=== PATIENT | female | born 1995 | race American Indian/Alaskan Native ===

== ENCOUNTER 2019-09-12 20:08 | Observation (INO) | payer MEDICAID ==
[2019-09-13 03:09] LABS: Hematocrit 29.7 % (30.3-42.9); Mean Corpuscular HGB Conc 34 % (30-34); Mean Corpuscular Volume 85 fl (79-97); Platelet Count 232 K/mm3 (140-440); Red Blood Count 3.49 M/mm3 (3.65-5.03); Red Cell Distribution Width 13.7 % (13.2-15.2)
[2019-09-13 03:27] LABS: Alanine Aminotransferase 46 units/L (7-56)
[2019-09-13 03:28] LABS: Uric Acid 3.7 mg/dL (3.5-7.6)
[2019-09-13 04:29] LABS: Bacteria,Urine 4+ /HPF (Negative); Bilirubin,Urine NEG (Negative); Blood,Urine NEG (Negative); Color,Urine Yellow (Yellow); Mucus,Urine 3+ /HPF
--- NOTE | 2019-09-13 04:47 | History and Physical Report ---
History of Present Illness Date of examination: 09/13/19 (Pt with complaints abdominal pain, LOF, REYES) Date of admission: 09/13/2019 Chief complaint: I have been having abdominal pain and LOF. I have had a headache for 2 days that is worse then my headaches I normally get. History of present illness: EDC Calculations LMP: 11/18/2019 EDC Confirmation: 11/18/2019 Gestational Age: 21 3/7 weeks Past History : 3 Term Births: 0 Premature Births: 0 Living Children: 0 Para: 0 Mult. Births: 0 Prev : 0 Prev. attempt? 0 Aborta: 1 Elect. Ab: 1 Spont. Ab: 1 Ectopics: 0 # 1 Delivery date: 2016 Delivery type: SAB # 2 Delivery date: 2016 Delivery type: EAB Comments: surgical intervention Risk Factors: Smoked Tobacco Use: Never smoker Smokeless Tobacco Use: Never Tobacco Use Comments: radha prior Passive smoke exposure: no Drug use: no HIV high-risk behavior: no Caffeine use: 0 drinks per day Alcohol use: yes Type: occ Exercise: no Seatbelt use: preg-social services counselor % Dietary Counseling: pn yes PAP Smear History: Date of Last PAP Smear: 07/29/2016 Results: Normal Past Medical History: Asthma - childhood Vertigo Blood Transfusion - as Past Medical History Blood Transfusions: yes Abnormal PAP: negative JORGE Exposure: negative Infertility: negative Uterine Anomaly: negative Uterine Surgery (not C/S): negative Other Gynecologic Problems: negative Infection History Hx of STD: gonorrhea HIV Risk Eval: no Hepatitis B Risk Eval: low risk Personal hx. of genital herpes: no Rash, Viral, or Febrile illness since last LMP? no Varicella/Chicken Pox Status: Immunized TB Risk: no Genetic History Congenital Heart Defect: Mom: no Dad: no Vahe Disease: Mom: no Dad: no Thalassemia Mom: no Dad: no Neural Tube Defect Mom: no Dad: no Down's Syndrome Mom: no Dad: no Laureano-Sachs Mom: no Dad: no Sickle Cell Disease/Trait Mom: no Dad: no Hemophilia Mom: no Dad: no Muscular Dystrophy Mom: no Dad: no Cystic Fibrosis Mom: no Dad: no Penn Chorea Mom: no Dad: no Mental Retardation Mom: no Dad: no Fragile X Mom: no Dad: no Other Genetic/Chromosomal Disorder Mom: no Dad: no Child w/other defect Mom: no Dad: no Enviromental Exposures Enviromental Exposures Reviewed Xray Exposure: no Medication, drug, or alcohol use since LMP: no Chemical/Other Exposure: no Exposure to Cat Liter: no Hx of Parvovirus (Fifth Disease): no Occupational Exposure to Children: none Comments: Unemployed Current Allergies (reviewed today): No known allergies Past History Past Medical History: asthma, other (Vertigo) Past Surgical History: no surgical history Family/Genetic History: none Social history: no significant social history - Obstetrical History Expected Date of Delivery: 11/18/19 Actual Gestation: 30 Week(s) 4 Day(s) : 3 Para: 0 Hx # Term Pregnancies: 0 Number of Pregnancies: 0 Spontaneous Abortions: 1 Induced : 1 Number of Living Children: 0 Medications and Allergies Allergies Allergy/AdvReac Type Severity Reaction Status Date / Time No Known Allergies Allergy Unverified 09/13/19 03:51 Review of Systems All systems: negative - Vital Signs Vital signs: Vital Signs Temp Resp 98.6 F 18 09/12/19 23:07 09/12/19 23:07 Temp Pulse Resp BP Pulse Ox 98.8 F 112 H 17 148/67 09/13/19 04:28 09/13/19 04:11 09/13/19 04:28 09/13/19 04:11 - Physical Exam Breasts: Positive: deferred Cardiovascular: Regular rate, Normal S1, Normal S2 Lungs: Positive: Clear to auscultation Abdomen: Positive: normal appearance, soft, normal bowel sounds. Negative: distention, tenderness Genitourinary (Female): Positive: normal external genitalia, normal perenium Vulva: both: normal Vagina: Positive: normal moisture. Negative: discharge Cervix: Negative: lesion, discharge Uterus: Positive: normal size, normal contour Adnexa: both: normal Anus/Rectum: Positive: normal perianal skin, heme negative. Negative: rectal mass, hemorrhoids Extremities: Positive: edema (Trace edema noted to lower extremities.) Deep Tendon Reflex Grade: Normal +2 - Obstetrical FHR: auscultation normal Uterine Contraction Monitor Mode: External Uterine Contraction Pattern: Absent Results Result Diagrams: 09/13/19 02:46 09/13/19 02:46 Abnormal lab results 09/13/19 09/13/19 Range/Units 02:46 02:46 RBC 3.49 L (3.65-5.03) M/mm3 Hgb 10.0 L (10.1-14.3) gm/dl Hct 29.7 L (30.3-42.9) % Creatinine 0.4 L (0.7-1.2) mg/dL AST 47 H (5-40) units/L All other labs normal. GBS UNKNOWN HBsAg Screen Negative Negative *1 RPR Non Reactive Non Reactive *2 Rubella Antibodies, IgG 3.86 index Immune >0.99 *3 Non-immune <0.90 Equivocal 0.90 - 0.99 Immune >0.99 ABO Grouping A *4 Rh Factor Positive *5 Please note: Prior records for this patient's ABO / Rh type are not available for additional verification. Antibody Screen Negative Negative *6 WBC 8.7 x10E3/uL 3.4-10.8 *7 RBC [L] 3.47 x10E6/uL 3.77-5.28 *8 Hemoglobin [L] 10.0 g/dL 11.1-15.9 *9 Hematocrit [L] 30.6 % 34.0-46.6 *10 MCV 88 fL 79-97 *11 MCH 28.8 pg 26.6-33.0 *12 MCHC 32.7 g/dL 31.5-35.7 *13 RDW 13.8 % 11.7-15.4 *14 Platelets 203 x10E3/uL 150-450 *15 Neutrophils 70 % Not Estab. *16 Lymphs 22 % Not Estab. *17 Monocytes 6 % Not Estab. *18 Eos 1 % Not Estab. *19 Basos 0 % Not Estab. *20 ! Immature Cells <No Reported Value> *21 Neutrophils (Absolute) 6.0 x10E3/uL 1.4-7.0 *22 Lymphs (Absolute) 1.9 x10E3/uL 0.7-3.1 *23 Monocytes(Absolute) 0.5 x10E3/uL 0.1-0.9 *24 Eos (Absolute) 0.1 x10E3/uL 0.0-0.4 *25 Baso (Absolute) 0.0 x10E3/uL 0.0-0.2 *26 ! Immature Granulocytes 1 % Not Estab. *27 ! Immature Grans (Abs) 0.1 x10E3/uL 0.0-0.1 *28 ! NRBC <No Reported Value> *29 Hematology Comments: <No Reported Value> *30 Tests: (2) Gestational Glucose Tolerance (251852) Glucose - Fasting 93 mg/dL 65-94 *31 Glucose - 1 hour 171 mg/dL 65-179 *32 Glucose - 2 hour 140 mg/dL 65-154 *33 Glucose - 3 hour 128 mg/dL 65-139 *34 ! Note: SPRCS *35 For diagnosis of gestational diabetes, at least two values must meet or exceed normal limits, which is based on 100 gm of oral glucose challenge. Tests: (3) HIV Ag/Ab with Reflex (684763) HIV Screen 4th Generation wRfx Non Reactive Non Reactive *36 Tests: (4) HCV Ab w/Rflx to Verification (237566) ! HCV Ab <0.1 s/co ratio 0.0-0.9 *37 Tests: (5) Comment: (376105) ! Comment: SPRCS *38 Non reactive HCV antibody screen is consistent with no HCV infection, unless recent infection is suspected or other evidence exists to indicate HCV infection. Assessment and Plan Pt is a 24 y.o. @ 30.4 wks who originally came to OB triage with c/o LOF, lower abdominal and back pain. Also states that the abdominal pain started in the lower abdomen, but is now "all over". SROM and labor was r/o. Category 1 monitor strip, no contractions noted. Upon further examination the pt was noted to have some elevated BP's. The highest being 157/120. Called by RN with BP readings. Labs were ordered and pt was found to have a slightly elevated AST. Spoke with the patient regarding findings and further questioning revealed that the patient has had a REYES for 2 days. States that this REYES is worse then her normal REYES that she has had during this . She has not taken anything for relief for of this REYES. Spoke with with Dr. Montemayor who recommended admitting the patient for OBS, administering doses of steroids, and getting a 24 hour urine Explained plan to pt: admit for steroid administration, complete 24 hour urine, and monitor BP's. Explained reason for admission to observation was to watch patient and status for 24 hours d/t elevated blood pressures in and that she would need further testing and evaluation if she was diagnosed with pre eclampsia. Also explained what pre eclampsia was to patient. Patient verbalized understanding. All questions and concerns were addressed at this time. - Patient Problems (1) 30 weeks gestation of Onset Date: ~09/09/19 Current Visit: Yes Status: Acute Plan to address problem: Continue to monitor status. BMZ given for lung maturity. (2) Elevated blood pressure reading without diagnosis of hypertension Onset Date: ~09/13/19 Current Visit: Yes Status: Acute Plan to address problem: Monitor BP's, obtain pre eclampsia labs, collect 24 hour urine.
[2019-09-13] MEDS: LACTATED RINGERS 1,000 ML IV SCH ×2 (05:35→22:10)
[2019-09-13] MEDS: ALUM-MAG HYDROXIDE-SIMETHICONE 200-200-20MG/5ML ORAL LIQD 30 ML PO PRN (05:35)
[2019-09-13] MEDS: BETAMET ACET/BETAMET NA PH 6 MG/ML INJ 5 ML MDV IM SCH (05:39)
[2019-09-13] MEDS: FAMOTIDINE 20 MG/2 ML INJ IV SCH (10:01)
[2019-09-13] MEDS: ACETAMINOPHEN 500 MG TAB PO PRN (20:22)
[2019-09-13] MEDS: diphenhydrAMINE 25 MG CAP PO PRN (20:22)
[2019-09-13] MEDS ORDERED: ZOLPIDEM 5 MG TAB PO PRN (23:55)
[2019-09-14] MEDS: ACETAMINOPHEN 500 MG TAB PO PRN (02:15)
[2019-09-14] MEDS ORDERED: MAGNESIUM SULFATE 4 GM/100 ML BAG IV ONE (02:45)
[2019-09-14] MEDS ORDERED: hydrALAZINE 20 MG/1 ML INJ IV ONE (02:45)
--- NOTE | 2019-09-14 02:48 | Event Note ---
Date: 09/14/19 Pt c/o having headache not relieved with tylenol times two does and now with elevation in blood pressures. Will start magnesium at this time and given 5 of hydralazine IV. Orders entered and given to RN taking care of pt.
[2019-09-14] MEDS ORDERED: fentaNYL 100 MCG/2 ML INJ IV ONE ×2 (02:50→06:00)
[2019-09-14] MEDS ORDERED: MAGNESIUM SULFATE 40GM/1000ML 40 GM/1,000 ML BAG IV SCH (03:00)
--- NOTE | 2019-09-14 05:37 | History and Physical Report ---
History of Present Illness Date of examination: 09/14/19 Date of admission: 09/13/19 05:32 Past History Past Medical History: asthma, other (Vertigo) Past Surgical History: no surgical history Family/Genetic History: none - Obstetrical History : 3 Medications and Allergies Allergies Allergy/AdvReac Type Severity Reaction Status Date / Time No Known Allergies Allergy Unverified 09/13/19 03:51 Home Medications Medication Instructions Recorded Confirmed Last Taken Type Vit-Fe Fumar-FA [ 1 tab PO QDAY 09/13/19 09/13/19 Unknown History Vitamin] Active Meds: Active Medications Acetaminophen (Tylenol) 1,000 mg PO Q6H PRN PRN Reason: Pain, Mild (1-3) Last Admin: 09/14/19 02:15 Dose: 1,000 mg Documented by: Al Hydrox/Mg Hydrox/Simethicone (Alum-Mag Hydrox-Simeth [phone]/5ml) 30 ml PO Q4H PRN PRN Reason: Indigestion Last Admin: 09/13/19 05:35 Dose: 30 ml Documented by: Diphenhydramine HCl (Benadryl) 25 mg PO QHS PRN PRN Reason: Sleep Last Admin: 09/13/19 20:22 Dose: 25 mg Documented by: Famotidine (Pepcid) 20 mg IV QDAY JODI Last Admin: 09/13/19 10:01 Dose: 20 mg Documented by: Fentanyl (Sublimaze) 100 mcg IV ONCE ONE Stop: 09/14/19 06:01 Lactated Ringer's (Lactated Ringers) 1,000 mls @ 75 mls/hr IV DIRECT JODI Last Admin: 09/13/19 22:10 Dose: 75 mls/hr Documented by: Multivitamins/Iron/Calcium ( Vitamin) 1 each PO QDAY JODI - Vital Signs Vital signs: Vital Signs Temp Resp 98.6 F 18 09/12/19 23:07 09/12/19 23:07 Temp Pulse Resp BP Pulse Ox 98.3 F 102 H 17 111/55 09/14/19 05:19 09/14/19 05:33 09/13/19 19:20 09/14/19 05:33 Results Result Diagrams: 09/13/19 02:46 09/13/19 02:46 All other labs normal.
[2019-09-14] MEDS: BETAMET ACET/BETAMET NA PH 6 MG/ML INJ 5 ML MDV IM SCH (05:39)
--- NOTE | 2019-09-14 05:53 | Progress Note ---
Assessment and Plan pt resting Continues to c/o headache 03/02. Given fentanyl as ordered. Pt has had the maximum dose of Tylenol. Consulted with Dr Nieto. CT scan of the head ordered for today. Pt is aware. BP 124-98/78-50. Thyroid panel ordered due to maternal tachycardia. 24hr urine completed and sent to lab PreE labs drawn Subjective - Subjective Date of service: 09/14/19 (pt c/o REYES 03/02; fentanyl given as ordered) Principal diagnosis: IUP@30w5d;REYES; PreE; 24hr urine completed Patient reports: movement normal Objective - Vital Signs Vital Signs: Vital Signs - 12hr 09/13/19 09/13/19 09/13/19 18:03 19:02 19:20 Temperature 98.9 F Pulse Rate 100 H 106 H Respiratory 17 Rate Blood Pressure 132/81 129/72 09/13/19 09/13/19 09/13/19 19:32 20:03 20:32 Temperature Pulse Rate 97 H 103 H 108 H Respiratory Rate Blood Pressure 123/70 123/60 118/68 09/13/19 09/13/19 09/13/19 21:03 21:33 22:03 Temperature Pulse Rate 99 H 100 H 110 H Respiratory Rate Blood Pressure 115/67 116/59 104/52 09/13/19 09/13/19 09/13/19 22:33 23:04 23:41 Temperature 98.7 F Pulse Rate 100 H 106 H Respiratory Rate Blood Pressure 107/55 105/58 09/13/19 09/14/19 09/14/19 23:46 00:02 00:33 Temperature Pulse Rate 104 H 103 H 112 H Respiratory Rate Blood Pressure 123/58 124/62 119/54 09/14/19 09/14/19 09/14/19 01:03 01:16 02:03 Temperature Pulse Rate 112 H 102 H 107 H Respiratory Rate Blood Pressure 114/53 148/71 187/80 09/14/19 09/14/19 09/14/19 02:33 03:02 03:06 Temperature Pulse Rate 110 H 102 H 104 H Respiratory Rate Blood Pressure 167/75 128/59 105/57 09/14/19 09/14/19 09/14/19 03:33 04:03 04:33 Temperature Pulse Rate 107 H 100 H 95 H Respiratory Rate Blood Pressure 105/51 98/50 114/54 09/14/19 09/14/19 09/14/19 05:03 05:19 05:33 Temperature 98.3 F Pulse Rate 104 H 102 H Respiratory Rate Blood Pressure 124/78 111/55 - Exam Breasts: deferred Cardiovascular: Regular rate Lungs: Normal air movement Abdomen: Present: normal appearance, soft. Absent: distention, tenderness Uterus: Present: normal FHR: auscultation normal, category 1 Uterine Contraction Monitor Mode: External Uterine Contraction Pattern: Absent Uterine Tone Measurement Phase: Resting Extremities: normal Deep Tendon Reflex Grade: Normal +2 - Labs Labs: Abnormal Labs 09/13/19 09/13/19 09/13/19 02:46 02:46 04:00 RBC 3.49 L Hgb 10.0 L Hct 29.7 L Creatinine 0.4 L AST 47 H Urine WBC (Auto) 10.0 H
[2019-09-14 07:10] LABS: Free T4 (Free Thyroxine) 0.95 ng/dL (0.76-1.46)
[2019-09-14 07:17] LABS: Creatinine 24 Hour,Urine 1.7 (0.8-2.8); Creatinine,Urine 128.5 mg/dL (0.1-20.0)
[2019-09-14] MEDS ORDERED: DEXMEDETOMIDINE 200 MCG/2 ML VIAL IV ONE (07:31)
--- NOTE | 2019-09-14 08:50 | Cat Scan Report ---
CT head without contrast INDICATION : Pt complains of a persistent headache.. TECHNIQUE: Axial imaging performed from the skull apex through the skull base without the use of con trast. All CT scans at this location are performed using CT dose reduction for ALARA by means of aut omated exposure control. COMPARISON: None FINDINGS: Parenchyma: No acute intracranial hemorrhage or parenchymal abnormality. Ventricles: Ventricles are normal in size and appear symmetric. Soft tissues: Soft tissues including the orbits appear normal. Bones: No acute osseous abnormality. Sinuses: Sinuses and mastoid air cells are clear. IMPRESSION: No acute abnormality. Signer Name: José Miguel Guerra MD Signed: 09/14/2019 8:45 AM Workstation Name: [id number]
[2019-09-14] MEDS: PRENATAL VIT27-FE FUMARATE-FOLIC ACID VIT TAB PO SCH (09:32)
[2019-09-14] MEDS: FAMOTIDINE 20 MG/2 ML INJ IV SCH (09:32)
--- NOTE | 2019-09-14 10:02 | Event Note ---
Date: 09/14/19 (pt called asking to see provider several times) Pt states she is very anxious @ her baby and her health. Reassured that all of her testing for PreE had come back and that was not at this time the cause of her REYES. At the time of the visit the CT results were not back, they have returned as of this documentation and it is WNL. Consulted with Dr Montemayor. Order given for Claritin and fioricet. pt aware if CT was negative we will plan d/c. Called MERLIN Cervantes made her aware of order for medication.
[2019-09-14] MEDS: BUTALB/ACETAMINOPHEN/CAFFEINE TAB PO PRN ×2 (10:39→21:45)
[2019-09-14] MEDS: LORATADINE/PSEUDOEPHEDRINE 10-240 MG TAB 24HR PO SCH (11:37)
--- NOTE | 2019-09-14 12:37 | Discharge Summary ---
Providers - Providers Date of Admission: 09/13/19 05:32 Date of discharge: 09/14/19 (Pt states REYES has improved but it is still there; agrees to d/c) Attending physician: NATASHA VORA Primary care physician: NATASHA VORA Hospitalization Reason for admission: Pt c/o LOF, REYES Condition: Good Procedures: CT scan wnl PreE labs wnl US Hospital course: Evaluation for LOF; c/o REYES Disposition: DC-01 TO HOME OR SELFCARE - Discharge Diagnoses (1) Headache Status: Acute Qualifiers: Headache type: tension-type Headache chronicity pattern: episodic headache Comment: Encouraged pt to use Tylenol cold/sinus as directed on package and take with sips of caffine. Core Measure Documentation - Palliative Care Palliative Care/ Comfort Measures: Not Applicable - Core Measures Any of the following diagnoses?: none - VTE Discharge Requirements Deep Vein Thrombosis/Pulmonary Embolism Present on Admission: No Has pt received <5 days of overlap therapy or INR<2.0: No Anticoagulant overlap therapy prescribed at discharge: No Contraindication No Overlap Therapy order at DC: Not Indicated - Acute SC Discharge Requirements Aspirin at discharge: No Reason for no aspirin on DC: Medical contraindication DEMETRICE/ARB for LVSD if EF <40%: Not Applicable Reason for no DEMETRICE/ARB: Medical contraindication Reason for no beta malena on DC: Medical contraindication Statin for LDL = or >100 mg/dl on DC: Not Applicable Reason for no statin on DC: Medical contraindication - Heart Failure Discharge Requirements DEMETRICE/ARB for LVSD if EF <40%: Not Applicable Reason for no DEMETRICE/ARB: Medical contraindication Beta malena at discharge: No Reason for no beta malena on DC: Medical contraindication - Stroke Discharge Requirements Statin for LDL = or >70 mg/dl on DC: Not Applicable Reason for no statin on DC: Not Indicated Anticoag for atrial fib/atrial flutter: Not Applicable Reason for no anticoag for AF/F on DC: Not Indicated Antithrombotic for ischemic stroke: No Reason for no antithrombotic on DC: Not Indicated Exam - Constitutional Vitals: Temp Pulse Resp BP Pulse Ox 98.2 F 97 H 18 115/54 09/14/19 12:03 09/14/19 12:03 09/14/19 12:03 09/14/19 12:03 General appearance: Present: no acute distress, well-nourished - EENT Eyes: Present: PERRL ENT: hearing intact, clear oral mucosa - Neck Neck: Present: supple, normal ROM - Respiratory Respiratory effort: normal Respiratory: bilateral: CTA - Cardiovascular Heart Sounds: Present: S1 & S2. Absent: rub, click - Extremities Extremities: pulses symmetrical, No edema Peripheral Pulses: within normal limits - Abdominal General gastrointestinal: Present: deferred Female genitourinary: Present: deferred - Rectal Rectal Exam: deferred - Integumentary Integumentary: Present: clear, warm, dry - Musculoskeletal Musculoskeletal: gait normal, strength equal bilaterally - Psychiatric Psychiatric: appropriate mood/affect, intact judgment & insight - Neurologic Neurologic: CNII-XII intact, moves all extremities Plan Activity: advance as tolerated Weight Bearing Status: Weight Bear as Tolerated Diet: low salt Care Plan Goals: resolution of REYES Follow up with: NATASHA VORA MD [Primary Care Provider] - 09/18/19 10:15 am (Please keep your appointment as scheduled in [place] on Wednesday09-18-19 @ 10:15AM Call with worsening headache, blurred vision, chest pain. Hydration, kick counts. Limit the amout of salt you use on your foods.)
--- NOTE | 2019-09-14 15:30 | Event Note ---
Date: 09/14/19 Called Shailesh Phoenix for patient update. States patient is still in US however BPP was 4/8 with EDER 7. States FHT's were reactive prior to discontinuing monitoring. Orders placed in [facility], RN informed Discharge cancelled, IVF started, need O2 sats and continuous monitoring.
[2019-09-14] MEDS: D5W/LACTATED RINGERS 1,000 ML IV SCH (15:56)
--- NOTE | 2019-09-14 16:04 | Progress Note ---
Assessment and Plan BPP 4/8 EDER 7. These findings are inconsistent with observed CNM evaluation at the bedside NST reactive, palpated movement, pt reports good movement. Consulted with Dr Montemayor Will order repeat testing in AM BPP and EDER. Pt agrees with POC. Will cont. IVFs overnight. - Patient Problems (1) Headache Current Visit: Yes Status: Acute Qualifiers: Headache type: tension-type Headache chronicity pattern: episodic headache Plan to address problem: REYES is minimal at this time. Pt very anxious @ todays findings. Explained all findings to pt and her mom and that we will repeat BPP and EDER in the AM. Subjective - Subjective Date of service: 09/14/19 (spoke with pt and her mom(via phone) at pt's request) Principal diagnosis: IUP@30w5d;REYES; PreE; 24hr urine completed Patient reports: movement normal Objective - Vital Signs Vital Signs: Vital Signs - 12hr 09/14/19 09/14/19 09/14/19 04:03 04:33 05:03 Temperature Pulse Rate 100 H 95 H 104 H Respiratory Rate Blood Pressure 98/50 114/54 124/78 O2 Sat by Pulse Oximetry 09/14/19 09/14/19 09/14/19 05:19 05:33 06:03 Temperature 98.3 F Pulse Rate 102 H 88 Respiratory Rate Blood Pressure 111/55 122/58 O2 Sat by Pulse Oximetry 09/14/19 09/14/19 09/14/19 06:33 07:03 07:33 Temperature 98.5 F Pulse Rate 87 84 98 H Respiratory 18 Rate Blood Pressure 133/60 132/58 105/54 O2 Sat by Pulse Oximetry 09/14/19 09/14/19 09/14/19 08:03 09:33 10:03 Temperature 98.3 F Pulse Rate 94 H 93 H 106 H Respiratory 18 Rate Blood Pressure 110/59 116/57 104/49 O2 Sat by Pulse Oximetry 09/14/19 09/14/19 09/14/19 10:33 11:03 11:33 Temperature Pulse Rate 114 H 111 H 110 H Respiratory Rate Blood Pressure 102/45 109/52 115/53 O2 Sat by Pulse Oximetry 09/14/19 09/14/19 09/14/19 11:40 12:03 12:33 Temperature 98.2 F 98.2 F Pulse Rate 97 H 103 H Respiratory 18 18 Rate Blood Pressure 115/54 101/50 O2 Sat by Pulse Oximetry 09/14/19 09/14/19 09/14/19 13:03 15:28 15:29 Temperature Pulse Rate 101 H 101 H 104 H Respiratory Rate Blood Pressure 88/49 123/55 O2 Sat by Pulse 99 Oximetry 09/14/19 09/14/19 09/14/19 15:34 15:39 15:44 Temperature Pulse Rate 107 H 101 H 107 H Respiratory Rate Blood Pressure O2 Sat by Pulse 100 100 99 Oximetry 09/14/19 09/14/19 15:49 15:54 Temperature Pulse Rate 105 H 101 H Respiratory Rate Blood Pressure O2 Sat by Pulse 99 99 Oximetry - Exam Breasts: deferred Cardiovascular: Regular rate Lungs: Clear to auscultation Abdomen: Present: normal appearance, soft. Absent: distention, tenderness Uterus: Present: normal FHR: auscultation normal, category 1 FHR comments: variability is minimal; prior to US NST very reactive Overall even now Cat 1 Uterine Contraction Monitor Mode: External Uterine Contraction Pattern: Absent Uterine Tone Measurement Phase: Resting Extremities: normal Deep Tendon Reflex Grade: Normal +2 - Labs Labs: Abnormal Labs 09/13/19 09/13/19 09/13/19 02:46 02:46 04:00 RBC 3.49 L Hgb 10.0 L Hct 29.7 L Creatinine 0.4 L AST 47 H Urine WBC (Auto) 10.0 H Urine Creatinine Ur Total Protein 24 Hr Urine Total Protein 09/14/19 09/14/19 04:00 06:28 RBC Hgb Hct Creatinine AST 46 H Urine WBC (Auto) Urine Creatinine 128.5 H Ur Total Protein 24 Hr 229.50 H Urine Total Protein 17 H Laboratory Results - last 24 hr 09/14/19 09/14/19 09/14/19 04:00 06:28 06:28 AST 46 H TSH 1.100 Free T4 0.95 Urine Total Volume 1350 Urine Creatinine 128.5 H Ur Creatinine 24 Hour 1.7 Ur Total Protein 24 Hr 229.50 H Urine Total Protein 17 H
[2019-09-14] MEDS ORDERED: ZOLPIDEM 5 MG TAB PO ONE (20:00)
[2019-09-15] MEDS: BUTALB/ACETAMINOPHEN/CAFFEINE TAB PO PRN (03:04)
[2019-09-15] MEDS: diphenhydrAMINE 25 MG CAP PO PRN (03:04)
[2019-09-15] MEDS: D5W/LACTATED RINGERS 1,000 ML IV SCH ×2 (03:05→07:22)
--- NOTE | 2019-09-15 07:34 | Ultrasound Report ---
ULTRASOUND OBSTETRIC LIMITED ULTRASOUND BIOPHYSICAL PROFILE INDICATION / CLINICAL INFORMATION: Leakage of fluid. COMPARISON: None available. FINDINGS: BREATHING MOVEMENT = 0 GROSS BODY MOVEMENT = 2 TONE = 0 QUALITATIVE AMNIOTIC FLUID VOLUME = 2 TOTAL BIOPHYSICAL SCORE = 4/8 AMNIOTIC FLUID INDEX (cm) = 7.8 PRESENTATION: Cephalic. HEART RATE (beats per minute): 159 ADDITIONAL FINDINGS: None. IMPRESSION: 1. Biophysical Score = 4/8 Signer Name: Rico Pringle MD Signed: 09/14/2019 4:16 PM Workstation Name: [id number]
--- NOTE | 2019-09-15 07:37 | Progress Note ---
Assessment and Plan Patient resting on right side with c/o REYES. denies leaking, bleeding, or ctx and reports active FM. repeat BPP scheduled for this morning. If BPP will plan on d/c home with f/u in office next week. - Patient Problems (1) 30 weeks gestation of Onset Date: ~09/09/19 Current Visit: Yes Status: Acute (2) Elevated blood pressure reading without diagnosis of hypertension Onset Date: ~09/13/19 Current Visit: Yes Status: Acute Plan to address problem: 24h urine TP 229 AST/ALT 46/46 Blood pressures are normal Will continue to closely monitor (3) Headache Current Visit: Yes Status: Acute Qualifiers: Headache type: tension-type Headache chronicity pattern: episodic headache Plan to address problem: Tylenol PO PRN Subjective - Subjective Date of service: 09/15/19 Principal diagnosis: IUP@[id number];REYES; 24hr urine completed Patient reports: movement normal, no new complaints, no loss of fluid, no vaginal bleeding, no contractions Objective - Vital Signs Vital Signs: Vital Signs - 12hr 09/14/19 09/14/19 09/14/19 19:35 19:41 19:46 Temperature Pulse Rate 112 H 60 115 H Respiratory Rate Blood Pressure O2 Sat by Pulse 100 98 99 Oximetry 09/14/19 09/14/19 09/14/19 19:51 19:56 20:01 Temperature Pulse Rate 114 H 115 H 108 H Respiratory Rate Blood Pressure O2 Sat by Pulse 99 99 99 Oximetry 09/14/19 09/14/19 09/14/19 20:06 20:11 20:15 Temperature 97.9 F Pulse Rate 102 H 104 H Respiratory 18 Rate Blood Pressure O2 Sat by Pulse 100 100 Oximetry 09/14/19 09/14/19 09/14/19 20:16 20:21 20:26 Temperature Pulse Rate 108 H 105 H 98 H Respiratory Rate Blood Pressure O2 Sat by Pulse 100 100 100 Oximetry 09/14/19 09/14/19 09/14/19 20:28 20:31 20:36 Temperature Pulse Rate 104 H 100 H 104 H Respiratory Rate Blood Pressure 125/75 O2 Sat by Pulse 100 100 Oximetry 09/14/19 09/14/19 09/14/19 20:41 20:46 20:51 Temperature Pulse Rate 118 H 108 H 106 H Respiratory Rate Blood Pressure O2 Sat by Pulse 100 100 100 Oximetry 09/14/19 09/14/19 09/14/19 20:56 20:57 21:01 Temperature Pulse Rate 107 H 108 H 106 H Respiratory Rate Blood Pressure 115/68 O2 Sat by Pulse 100 100 Oximetry 09/14/19 09/14/19 09/14/19 21:06 21:11 21:16 Temperature Pulse Rate 104 H 110 H 111 H Respiratory Rate Blood Pressure O2 Sat by Pulse 100 100 100 Oximetry 09/14/19 09/14/19 09/14/19 21:21 21:26 21:27 Temperature Pulse Rate 109 H 104 H 109 H Respiratory Rate Blood Pressure 122/66 O2 Sat by Pulse 100 100 Oximetry 09/14/19 09/14/19 09/14/19 21:31 21:36 21:41 Temperature Pulse Rate 109 H 114 H 113 H Respiratory Rate Blood Pressure O2 Sat by Pulse 100 100 100 Oximetry 09/14/19 09/14/19 09/14/19 21:46 21:51 21:56 Temperature Pulse Rate 105 H 105 H 124 H Respiratory Rate Blood Pressure O2 Sat by Pulse 100 100 100 Oximetry 09/14/19 09/14/19 09/14/19 21:58 22:01 22:06 Temperature Pulse Rate 105 H 110 H 113 H Respiratory Rate Blood Pressure 127/59 O2 Sat by Pulse 100 100 Oximetry 09/14/19 09/14/19 09/14/19 22:11 22:16 22:21 Temperature Pulse Rate 117 H 122 H 110 H Respiratory Rate Blood Pressure O2 Sat by Pulse 100 100 100 Oximetry 09/14/19 09/14/19 09/14/19 22:26 22:27 22:31 Temperature Pulse Rate 120 H 111 H 114 H Respiratory Rate Blood Pressure 118/62 O2 Sat by Pulse 100 100 Oximetry 09/14/19 09/14/19 09/14/19 22:36 22:41 22:46 Temperature Pulse Rate 119 H 108 H 116 H Respiratory Rate Blood Pressure O2 Sat by Pulse 100 100 100 Oximetry 09/14/19 09/14/19 09/14/19 22:51 22:56 22:57 Temperature Pulse Rate 110 H 107 H 110 H Respiratory Rate Blood Pressure 119/65 O2 Sat by Pulse 100 100 Oximetry 09/14/19 09/14/19 09/14/19 23:01 23:06 23:11 Temperature Pulse Rate 104 H 106 H 107 H Respiratory Rate Blood Pressure O2 Sat by Pulse 100 100 99 Oximetry 09/14/19 09/14/19 09/14/19 23:16 23:21 23:26 Temperature Pulse Rate 95 H 98 H 99 H Respiratory Rate Blood Pressure O2 Sat by Pulse 99 99 99 Oximetry 09/14/19 09/14/19 09/14/19 23:27 23:31 23:36 Temperature Pulse Rate 94 H 103 H 101 H Respiratory Rate Blood Pressure 123/62 O2 Sat by Pulse 99 100 Oximetry 09/14/19 09/14/19 09/14/19 23:41 23:46 23:51 Temperature Pulse Rate 103 H 101 H 100 H Respiratory Rate Blood Pressure O2 Sat by Pulse 99 100 99 Oximetry 09/14/19 09/14/19 09/15/19 23:56 23:59 00:01 Temperature Pulse Rate 105 H 103 H 104 H Respiratory Rate Blood Pressure 122/59 O2 Sat by Pulse 99 100 Oximetry 09/15/19 09/15/19 09/15/19 00:06 00:11 00:16 Temperature Pulse Rate 98 H 99 H 103 H Respiratory Rate Blood Pressure O2 Sat by Pulse 100 100 99 Oximetry 09/15/19 09/15/19 09/15/19 00:21 00:26 00:27 Temperature Pulse Rate 109 H 113 H 112 H Respiratory Rate Blood Pressure 130/60 O2 Sat by Pulse 100 100 Oximetry 09/15/19 09/15/19 09/15/19 00:31 00:36 00:41 Temperature Pulse Rate 117 H 121 H 114 H Respiratory Rate Blood Pressure O2 Sat by Pulse 100 100 100 Oximetry 09/15/19 09/15/19 09/15/19 00:46 00:51 00:56 Temperature Pulse Rate 112 H 98 H 104 H Respiratory Rate Blood Pressure O2 Sat by Pulse 99 100 100 Oximetry 09/15/19 09/15/19 09/15/19 00:57 01:01 01:06 Temperature Pulse Rate 98 H 102 H 102 H Respiratory Rate Blood Pressure 122/57 O2 Sat by Pulse 100 100 Oximetry 09/15/19 09/15/19 09/15/19 01:11 01:16 01:21 Temperature Pulse Rate 102 H 95 H 94 H Respiratory Rate Blood Pressure O2 Sat by Pulse 100 99 99 Oximetry 09/15/19 09/15/1920 01:26 01:27 01:31 Temperature Pulse Rate 98 H 94 H 97 H Respiratory Rate Blood Pressure 126/62 O2 Sat by Pulse 100 100 Oximetry 09/15/19 09/15/19 09/15/19 01:36 01:41 01:46 Temperature Pulse Rate 97 H 97 H 92 H Respiratory Rate Blood Pressure O2 Sat by Pulse 100 100 100 Oximetry 09/15/19 09/15/19 09/15/19 01:51 01:56 01:57 Temperature Pulse Rate 96 H 101 H 99 H Respiratory Rate Blood Pressure 121/59 O2 Sat by Pulse 100 100 Oximetry 09/15/19 09/15/19 09/15/19 02:01 02:06 02:11 Temperature Pulse Rate 103 H 104 H 103 H Respiratory Rate Blood Pressure O2 Sat by Pulse 100 99 100 Oximetry 09/15/19 09/15/19 09/15/19 02:16 02:21 02:26 Temperature Pulse Rate 112 H 99 H 95 H Respiratory Rate Blood Pressure O2 Sat by Pulse 99 100 99 Oximetry 09/15/19 09/15/19 09/15/19 02:27 02:31 02:36 Temperature Pulse Rate 93 H 94 H 103 H Respiratory Rate Blood Pressure 118/57 O2 Sat by Pulse 100 99 Oximetry 09/15/19 09/15/19 09/15/19 02:41 02:46 02:51 Temperature Pulse Rate 92 H 100 H 102 H Respiratory Rate Blood Pressure O2 Sat by Pulse 99 100 100 Oximetry 09/15/19 09/15/19 09/15/19 02:56 02:58 03:00 Temperature 97.9 F Pulse Rate 115 H 95 H 97 H Respiratory Rate Blood Pressure 157/106 121/58 O2 Sat by Pulse 100 94 Oximetry 09/15/19 09/15/19 09/15/19 03:01 03:06 03:11 Temperature Pulse Rate 98 H 97 H 123 H Respiratory Rate Blood Pressure O2 Sat by Pulse 100 100 100 Oximetry 09/15/19 09/15/19 09/15/19 03:16 03:21 03:26 Temperature Pulse Rate 90 98 H 93 H Respiratory Rate Blood Pressure O2 Sat by Pulse 100 100 100 Oximetry 09/15/19 09/15/19 09/15/19 03:27 03:31 03:36 Temperature Pulse Rate 95 H 93 H 99 H Respiratory Rate Blood Pressure 115/61 O2 Sat by Pulse 100 100 Oximetry 09/15/19 09/15/19 09/15/19 03:41 03:46 03:51 Temperature Pulse Rate 91 H 97 H 103 H Respiratory Rate Blood Pressure O2 Sat by Pulse 99 99 98 Oximetry 09/15/19 09/15/19 09/15/19 03:56 04:01 04:06 Temperature Pulse Rate 84 89 91 H Respiratory Rate Blood Pressure O2 Sat by Pulse 98 100 100 Oximetry 09/15/19 09/15/19 09/15/19 04:11 04:16 04:21 Temperature Pulse Rate 86 89 92 H Respiratory Rate Blood Pressure O2 Sat by Pulse 99 99 99 Oximetry 09/15/19 09/15/19 09/15/19 04:26 04:27 04:31 Temperature Pulse Rate 93 H 57 L 86 Respiratory Rate Blood Pressure O2 Sat by Pulse 99 94 100 Oximetry 09/15/19 09/15/19 09/15/19 04:36 04:41 04:46 Temperature Pulse Rate 87 88 86 Respiratory Rate Blood Pressure O2 Sat by Pulse 98 100 99 Oximetry 09/15/19 09/15/19 09/15/19 04:51 04:56 04:58 Temperature Pulse Rate 89 89 111 H Respiratory Rate Blood Pressure 128/62 O2 Sat by Pulse 99 99 Oximetry 09/15/19 09/15/19 09/15/19 05:01 05:06 05:11 Temperature Pulse Rate 89 90 85 Respiratory Rate Blood Pressure O2 Sat by Pulse 98 98 99 Oximetry 09/15/19 09/15/19 09/15/19 05:16 05:21 05:26 Temperature Pulse Rate 89 92 H 88 Respiratory Rate Blood Pressure O2 Sat by Pulse 99 99 99 Oximetry 09/15/19 09/15/19 09/15/19 05:27 05:31 05:36 Temperature Pulse Rate 86 97 H 83 Respiratory Rate Blood Pressure 109/52 O2 Sat by Pulse 99 98 Oximetry 09/15/19 09/15/19 09/15/19 05:41 05:46 05:51 Temperature Pulse Rate 91 H 90 89 Respiratory Rate Blood Pressure O2 Sat by Pulse 99 99 99 Oximetry 09/15/19 09/15/19 09/15/19 05:56 05:57 06:01 Temperature Pulse Rate 88 99 H 86 Respiratory Rate Blood Pressure 121/58 O2 Sat by Pulse 98 98 Oximetry 09/15/19 09/15/19 09/15/19 06:06 06:11 06:16 Temperature Pulse Rate 85 88 96 H Respiratory Rate Blood Pressure O2 Sat by Pulse 99 99 99 Oximetry 09/15/19 09/15/19 09/15/19 06:21 06:26 06:27 Temperature Pulse Rate 91 H 86 94 H Respiratory Rate Blood Pressure 118/57 O2 Sat by Pulse 99 99 Oximetry 09/15/19 09/15/19 09/15/19 06:31 06:36 06:41 Temperature Pulse Rate 87 88 89 Respiratory Rate Blood Pressure O2 Sat by Pulse 99 98 98 Oximetry 09/15/19 09/15/19 09/15/19 06:46 06:51 06:56 Temperature Pulse Rate 93 H 88 90 Respiratory Rate Blood Pressure O2 Sat by Pulse 99 98 98 Oximetry 09/15/19 09/15/19 09/15/19 06:57 07:01 07:06 Temperature Pulse Rate 100 H 92 H 87 Respiratory Rate Blood Pressure 123/59 O2 Sat by Pulse 98 98 Oximetry 09/15/19 09/15/19 09/15/19 07:11 07:16 07:21 Temperature Pulse Rate 92 H 91 H 89 Respiratory Rate Blood Pressure O2 Sat by Pulse 98 99 100 Oximetry 09/15/19 09/15/19 07:26 07:28 Temperature Pulse Rate 89 107 H Respiratory Rate Blood Pressure 125/65 O2 Sat by Pulse 100 Oximetry - Exam Breasts: normal Cardiovascular: Regular rate Lungs: Normal air movement Abdomen: Present: normal appearance, soft Uterus: Present: normal, fundal height above umbilicus FHR: auscultation normal, category 1 Uterine Contraction Monitor Mode: External Uterine Contraction Pattern: Absent Uterine Tone Measurement Phase: Resting Extremities: normal Deep Tendon Reflex Grade: Normal +2 - Labs Labs: Abnormal Labs 09/13/19 09/13/19 09/13/19 02:46 02:46 04:00 RBC 3.49 L Hgb 10.0 L Hct 29.7 L Creatinine 0.4 L AST 47 H Urine WBC (Auto) 10.0 H Urine Creatinine Ur Total Protein 24 Hr Urine Total Protein 09/14/19 09/14/19 04:00 06:28 RBC Hgb Hct Creatinine AST 46 H Urine WBC (Auto) Urine Creatinine 128.5 H Ur Total Protein 24 Hr 229.50 H Urine Total Protein 17 H Laboratory Results - last 24 hr 09/14/19 06:28 AST 46 H
[2019-09-15] MEDS: PRENATAL VIT27-FE FUMARATE-FOLIC ACID VIT TAB PO SCH (08:14)
[2019-09-15] MEDS: ALUM-MAG HYDROXIDE-SIMETHICONE 200-200-20MG/5ML ORAL LIQD 30 ML PO PRN (08:14)
[2019-09-15] MEDS: LORATADINE/PSEUDOEPHEDRINE 10-240 MG TAB 24HR PO SCH (09:06)
--- NOTE | 2019-09-15 10:46 | Ultrasound Report ---
ULTRASOUND BIOPHYSICAL PROFILE AND LIMITED OB PELVIC ULTRASOUND INDICATION / CLINICAL INFORMATION: well-being. Previous study abnormal. COMPARISON: Yesterday. FINDINGS: BREATHING MOVEMENT = 2 GROSS BODY MOVEMENT = 2 TONE = 2 QUALITATIVE AMNIOTIC FLUID VOLUME = 2 TOTAL BIOPHYSICAL SCORE = 8/8 AMNIOTIC FLUID INDEX (cm) = 9.5 PRESENTATION: Cephalic. HEART RATE (beats per minute): 159 IMPRESSION: biophysical profile = / . EDER 9.5 cm. Signer Name: Bradley Sheppard MD Signed: 09/15/2019 10:42 AM Workstation Name: [id number]
--- NOTE | 2019-09-15 11:18 | Discharge Summary ---
Providers - Providers Date of Admission: 09/13/19 05:32 Date of discharge: 09/15/19 Attending physician: NATASHA VORA 09/14/19 16:04 Consult to Physician [CONS] Routine Comment: Consulting Provider: GEN CHANCE Physician Instructions: BPP 08/29 Reason For Exam: continuity of care Primary care physician: NATASHA VORA Hospitalization Reason for admission: observation (elevated blood pressure and REYES) Discharge diagnosis: other (IUP @ 30 weeks) Condition at discharge: Good Disposition: DC-01 TO HOME OR SELFCARE - Discharge Diagnoses (1) 30 weeks gestation of Status: Acute (2) Elevated blood pressure reading without diagnosis of hypertension Status: Acute (3) Headache Status: Acute Qualifiers: Headache type: tension-type Headache chronicity pattern: episodic headache Comment: Encouraged pt to use Tylenol cold/sinus as directed on package and take with sips of caffine. Plan - Provider Discharge Summary Activity: routine Diet: routine Instructions: routine Additional instructions: [] Smoking cessation referral if applicable(refer to patient education folder for contact #) [] Refer to [facility] Booklet Call your doctor immediately for: * Fever > 100.5 * Heavy vaginal bleeding ( >1 pad per hour) * Severe persistent headache * Shortness of breath * Reddened, hot, painful area to leg or breast * Drainage or odor from incision. * Keep incision clean and dry at all times and follow doctor's instructions regarding bathing/showering - Follow up plan Follow up: NATASHA VORA MD [Primary Care Provider] - 09/18/19 10:15 am (Please keep your appointment as scheduled in [place] on Wednesday09-18-19 @ 1 0:15AM Call with worsening headache, blurred vision, chest pain. Hydration, kick counts. Limit the amout of salt you use on your foods.)
[2019-09-15 12:28] VITALS: BP 110/55
== END 2019-09-15 12:40 | disposition home or self-care (01) ==
LOC: EDSTATUS 20:40 → TRG 20:48 → APU 09-13 00:40 → TRG 09-13 04:49 → LD 09-13 05:32
PROVIDERS: ADMIT Obstetrics & Gynecology; ATTEND Obstetrics & Gynecology
DX: O42.913 Preterm premature rupture of membranes, unspecified as to length of time between rupture and onset of labor, third trimester (principal); O26.893 Other specified pregnancy related conditions, third trimester; R03.0 Elevated blood-pressure reading, without diagnosis of hypertension; R51 Headache; R10.9 Unspecified abdominal pain; Z3A.30 30 weeks gestation of pregnancy; Z79.899 Other long term (current) drug therapy
CPT/HCPCS: 36415; 70450; 76815; 76816; 76819; 81001; 82565; 82570; 83615; 84156; 84439; 84443; 84450; 84460; 84550; 85027; 87086; 96372; 96374; 96375; 96376; G0378; J0360; J0702; J3010; J3490; J7120; J7121

== ENCOUNTER 2019-10-27 18:28 | Observation (INO) | payer MEDICAID ==
[2019-10-27] MEDS ORDERED: LACTATED RINGERS 1,000 ML IV ONE (19:17)
[2019-10-27 20:40] LABS: Bacteria,Urine 4+ /HPF (Negative); Bilirubin,Urine NEG (Negative); Blood,Urine NEG (Negative); Color,Urine Amber (Yellow); Mucus,Urine 2+ /HPF; Protein,Urine <15 mg/dL mg/dL (Negative); Urobilinogen,Urine < 2.0 mg/dL (<2.0)
[2019-10-27 20:43] LABS: Basophils % (Auto) 0.6 % (0.0-1.8); Eosinophils % (Auto) 0.3 % (0.0-4.3); Lymphocytes # (Auto) 1.4 K/mm3 (1.2-5.4); Lymphocytes % (Auto) 20.2 % (13.4-35.0); Monocytes # (Auto) 0.5 K/mm3 (0.0-0.8); Monocytes % (Auto) 7.7 % (0.0-7.3)
[2019-10-27 20:47] LABS: Hematocrit 32.2 % (30.3-42.9); Hemoglobin 10.2 gm/dl (10.1-14.3); Mean Corpuscular HGB Conc 32 % (30-34); Mean Corpuscular Volume 80 fl (79-97); Platelet Count 274 K/mm3 (140-440); Red Blood Count 4.03 M/mm3 (3.65-5.03); Red Cell Distribution Width 15.5 % (13.2-15.2)
[2019-10-27 21:02] LABS: Alanine Aminotransferase 126 units/L (7-56); Albumin 3.3 g/dL (3.9-5); BUN/Creatinine Ratio 17; Blood Urea Nitrogen 10 mg/dL (7-17); Calcium 9.5 mg/dL (8.4-10.2); Hemolysis Index 2
[2019-10-27] MEDS ORDERED: SIMETHICONE 80 MG CHEW TAB PO PRN (21:33)
[2019-10-27] MEDS ORDERED: ACETAMINOPHEN 325 MG TAB PO PRN (21:33)
[2019-10-27] MEDS: ALUM-MAG HYDROXIDE-SIMETHICONE 200-200-20MG/5ML ORAL LIQD 30 ML PO PRN (22:47)
[2019-10-28] MEDS ORDERED: ACETAMINOPHEN 325 MG TAB PO PRN (09:30)
[2019-10-28] MEDS: ALUM-MAG HYDROXIDE-SIMETHICONE 200-200-20MG/5ML ORAL LIQD 30 ML PO PRN (10:07)
[2019-10-28] MEDS: PRENATAL VIT27-FE FUMARATE-FOLIC ACID VIT TAB PO SCH (10:07)
[2019-10-28] MEDS ORDERED: ALBUTEROL 2.5 MG/3 ML NEBU IH PRN (12:42)
[2019-10-28] MEDS: METOCLOPRAMIDE 10 MG TAB PO SCH ×2 (12:47→20:55)
[2019-10-28 14:46] LABS: Hepatitis B Surface Antigen Non-Reactive (Negative); Hepatitis C Virus Antibody Non-Reactive (NonReactive)
[2019-10-29 06:33] LABS: Alanine Aminotransferase 104 units/L (7-56); Albumin 2.9 g/dL (3.9-5); BUN/Creatinine Ratio 17; Blood Urea Nitrogen 10 mg/dL (7-17); Calcium 9.2 mg/dL (8.4-10.2); Hemolysis Index 2
[2019-10-29] MEDS: METOCLOPRAMIDE 10 MG TAB PO SCH (07:40)
[2019-10-29] MEDS: PRENATAL VIT27-FE FUMARATE-FOLIC ACID VIT TAB PO SCH (10:57)
[2019-10-29 11:42] VITALS: BP 108/59
== END 2019-10-29 12:15 | disposition home or self-care (01) ==
LOC: TRG 18:28 → APU 18:30 → TRG 19:17 → LD 19:18
PROVIDERS: ADMIT Obstetrics & Gynecology; ATTEND Obstetrics & Gynecology
DX: O26.893 Other specified pregnancy related conditions, third trimester (principal); R19.7 Diarrhea, unspecified; R79.89 Other specified abnormal findings of blood chemistry; O99.613 Diseases of the digestive system complicating pregnancy, third trimester; K21.9 Gastro-esophageal reflux disease without esophagitis; O99.513 Diseases of the respiratory system complicating pregnancy, third trimester; J45.20 Mild intermittent asthma, uncomplicated; Z79.899 Other long term (current) drug therapy; Z3A.36 36 weeks gestation of pregnancy
CPT/HCPCS: 36415; 76705; 80053; 80074; 81001; 83735; 84100; 85025; 87045; 87086; 87493; G0378

== ENCOUNTER 2019-11-05 14:27 | Outpatient (CLI) | payer MEDICAID ==
[2019-11-05 15:29] VITALS: BP 137/88
[2019-11-05] MEDS ORDERED: LACTATED RINGERS 1,000 ML IV SCH (16:00)
[2019-11-05] MEDS ORDERED: hydrOXYzine PAMOATE 25 MG CAP PO ONE (17:02)
== END 2019-11-05 17:34 | disposition home or self-care (01) ==
LOC: TRG 14:27 → APU 14:28 → TRG 17:34
PROVIDERS: ATTEND Obstetrics & Gynecology
DX: O62.9 Abnormality of forces of labor, unspecified (principal); O26.893 Other specified pregnancy related conditions, third trimester; M54.9 Dorsalgia, unspecified; O99.513 Diseases of the respiratory system complicating pregnancy, third trimester; J45.909 Unspecified asthma, uncomplicated; Z3A.38 38 weeks gestation of pregnancy
CPT/HCPCS: 59025; 96360; 96361; J7120; Q0177